=== PATIENT | female | born 1990 | race African-American/Black ===

== ENCOUNTER 2020-10-11 11:53 | Emergency (ER) | payer OTHER ==
[~2020-10-11] VITALS: Ht 157.5 cm; Wt 67.1 kg
[2020-10-11 13:45] LABS: MICROSCOPIC NOT IND
--- NOTE | 2020-10-11 14:10 | NUR ---
Pt brought warm blanket, clinical screen, med rec and rehabilitation services counselor completed. UA sent by triage staff upon arrival to room.
[2020-10-11] MEDS ORDERED: PREN1TAB60 PO (14:13)
[2020-10-11 14:30] LABS: BASOPHILS % (AUTO) 0 % (0-1); EOSINOPHILS % (AUTO) 1 % (1-7); LYMPHOCYTES % (AUTO) 18 % (22-44); MEAN CORPUSCULAR HEMOGLOBIN 31.9 pg (27.0-34.8); MEAN CORPUSCULAR HGB CONC 35.1 g/dL (32.4-35.8); MEAN PLATELET VOLUME 7.1 fL (7.4-10.4); MONOCYTES % (AUTO) 4 % (2-9); NEUTROPHILS % (AUTO) 78 % (42-75); PLATELET COUNT 249 x10^3/uL (130-400); RED BLOOD COUNT 4.44 x10^6/uL (3.82-5.3); RED CELL DISTRIBUTION WIDTH 12.2 % (9.6-15.2)
[2020-10-11 14:31] LABS: MD NO
[2020-10-11 14:41] LABS: ALANINE AMINOTRANSFERASE 27 U/L (12-78); ALBUMIN 3.3 g/dL (3.4-5.0); ANION GAP 5 mmol/L (5-15); CALCIUM 8.4 mg/dL (8.5-10.1); CHLORIDE 109 mmol/L (98-107); CREATININE 0.69 mg/dL (0.55-1.02)
[2020-10-11 14:57] LABS: ALKALINE PHOSPHATASE 45 U/L (45-117); BILIRUBIN,TOTAL 0.3 mg/dL (0.2-1.0)
--- NOTE | 2020-10-11 15:30 | NUR ---
Pt out of room, likely in [place] at this time.
--- NOTE | 2020-10-11 15:45 | NUR ---
Pt returning from [place] now.
--- NOTE | 2020-10-11 16:01 | NUR ---
Labs and US reviewed. Chart marked for recheck by .
--- NOTE | 2020-10-11 16:34 | NUR ---
MD at bedside to discuss findings and plan of care.
[2020-10-11 16:50] VITALS: BP 108/66
== END 2020-10-11 17:03 | disposition home or self-care (01) ==
LOC: ED 16:43
DX: O26.891 Other specified pregnancy related conditions, first trimester (principal); R10.13 Epigastric pain; Z3A.09 9 weeks gestation of pregnancy
CPT/HCPCS: 36415; 76801; 80053; 81003; 84702; 85025; 99284